=== PATIENT | male | born 1950 | race Caucasian/White ===

== ENCOUNTER 2016-11-11 07:31 | Inpatient (IN) | payer BC ==
[~2016-11-11] VITALS: Ht 185.4 cm; Wt 95.3 kg
[~2016-11-11 07:31] MED LIST: ASPI81TA28 PO; ATOR10TA82 PO; B-COCAP2 PO; CHOLTAB3 PO; FLUT0.15 NAE; HYDR25TA5 PO; MULT-506 PO; OMEG10007 PO
[2016-11-11] MEDS ORDERED: SODIUM CHLORIDE 0.9% 1000ML 1,000 ML IV STA (07:46)
[2016-11-11] MEDS ORDERED: ALBUTEROL 0.5% NEB SOLN 2.5 MG/0.5 ML VIAL INH STA ×2 (07:46→08:31)
[2016-11-11] MEDS ORDERED: ONDANSETRON INJ 2 MG/ML 2 ML VIAL IV STA (07:46)
--- NOTE | 2016-11-11 07:49 | EMERGENCY ROOM VISIT NOTE ---
History Report prepared by Itz: Gisselle Posadas Under the Supervision of: Dr. Valeriy Herrera M.D. First contact with patient: 07:37 Chief Complaint: VOMITING Stated Complaint: LIGHTHEADED, FLU LIKE SX History of Present Illness The patient is a 66 year old male who presents to the Emergency Room with complaints of a persistent illness that began five days ago. He currently rates his discomfort as a 5/10 in severity. The patient states that he felt that he was developing a cold. He states that his illness continued to worsen over the weekend and into Thursday. The patient states that he consulted his PCP and was instructed to take Mucinex and a cough suppressant. He associates a productive cough with his symptoms today. The patient denies any shortness of breath, chest pain, and abdominal pain. He associates a decrease in appetite over the last several days. The patient states that he began vomiting last evening and has been feeling dizzy. The patient's notes that the patient has been increasingly forgetful and confused. He notes a history of hypertension. The patient denies any smoking. Source of History: patient, spouse/significant other () Onset: five days ago Position: other (global) Symptom Intensity: 5/10 Timing: other (persistent) Associated Symptoms: + cough, + vomiting, No SOB, No abdominal pain, No chest pain Note: Associated Symptoms: dizzy, decrease in appetite Review of Systems See HPI for pertinent positives & negatives. A total of 10 systems reviewed and were otherwise negative. Past Medical & Surgical Medical Problems: (1) Basal cell carcinoma (2) Dyslipidemia (3) Hypertension (4) Hyponatremia Surgical Problems: (1) H/O arthroscopic knee surgery (2) H/O hernia repair (3) S/P hernia repair Family History Cancer Gallbladder disease Hypertension Social History Smoking Status: Never Smoker Smokeless Tobacco Use: No Alcohol Use: occasionally Marital Status: Housing Status: lives with significant other Occupation Status: retired Current/Historical Medications Scheduled Aspirin (Aspirin Ec), 81 MG PO DAILY Atorvastatin (Lipitor), 20 MG PO DAILY Benzonatate (Tessalon Perles), 100 MG PO TID Cholecalciferol (Vitamin D), PO DAILY Fish Oil ([place]-3), 2 CAP PO DAILY Guaifenesin (Mucinex Maximum Strength), 1 TAB PO BID Hydrochlorothiazide (Hctz), 12.5 MG PO DAILY Vitamin B Cmplx/Vitc/Folic Ac (Nephrocaps), 1 CAP PO DAILY Scheduled PRN Budesonide (Nasal) (Rhinocort Allergy), 2 PUFFS SHEA BID PRN for ALLERGIES Loratadine (Claritin), 10 MG PO DAILY PRN for ALLERGIC REACTION Allergies Coded Allergies: Ibuprofen (Unverified Adverse Reaction, Severe, BLEEDING, 11/11/16) Physical Exam Vital Signs Date Time Temp Pulse Resp B/P Pulse Ox O2 Delivery O2 Flow Rate FiO2 11/11/16 09:28 73 127/73 94 Room Air 11/11/16 09:01 88 153/92 11/11/16 07:38 36.8 94 20 211/111 94 Room Air Physical Exam GENERAL: Patient appears mildly confused, pale in appearance. HEAD: Normocephalic atraumatic EYES: Ocular movements intact pupils equal and react to light OROPHARYNX mucous membranes are moist no exudates present no erythema or edema present NECK: Supple no nuchal rigidity CHEST: Good equal expansion LUNGS: Clear and equal to auscultation CARDIAC: Normal S1 and S2 ABDOMEN: Soft nontender no guarding BACK: No CVA tenderness EXTREMITIES: No pain upon palpation normal muscle strength in all groups no clubbing cyanosis or edema NEURO: Patient is following commands is answering questions appropriately. Alert and oriented x3 Cranial Nerves 2-12 grossly intact Medical Decision & Procedures ER Provider Diagnostic Interpretation: Radiology results as stated below per my review and radiologist interpretation: HEAD CT NONCONTRAST CT DOSE: 614.27 mGy.cm HISTORY: Altered mental status. TECHNIQUE: Multiaxial CT images of the head were performed without the use of intravenous contrast. Automated exposure control was utilized for this study. Comparison: None. Findings: There is a 1.4 cm retention cyst within the right maxillary sinus. Partial opacification of the ethmoid air cells. The mastoid air cells are clear. The calvarium and skull base are intact. There is no mass, hematoma, midline shift, acute infarct. White matter hypodensity is nonspecific but suggestive of microvascular ischemic change. The ventricles and sulci demonstrate mild age-related involutional changes. Basal ganglia and cerebellar calcifications. Impression: No acute intracranial abnormality. Electronically signed by: Carlitos Landers M.D. 11/11/2016 8:27 AM Dictated Date/Time: 11/11/2016 8:24 AM CHEST ONE VIEW PORTABLE CLINICAL HISTORY: Wheezing. Flulike symptoms. COMPARISON STUDY: 11/05/2007 FINDINGS: The heart is the upper limits of normal in size. There is no failure. There is no focal pulmonary consolidation. There are no pleural effusions. There is minor left basilar atelectasis.[ IMPRESSION: No active disease in the chest. Electronically signed by: Dashawn Veloz M.D. 11/11/2016 8:14 AM Dictated Date/Time: 11/11/2016 8:13 AM Laboratory Results Test 11/11/16 07:50 11/11/16 08:30 Immature Granulocyte % (Auto) 0.3 % White Blood Count 10.49 K/uL (4.8-10.8) Red Blood Count 4.72 M/uL (4.7-6.1) Hemoglobin 15.8 g/dL (14.0-18.0) Hematocrit 41.8 % (42-52) Mean Corpuscular Volume 88.6 fL (80-100) Mean Corpuscular Hemoglobin 33.5 pg (25-34) Mean Corpuscular Hemoglobin Concent 37.8 g/dl (32-36) Platelet Count 196 K/uL (130-400) Mean Platelet Volume 11.2 fL (7.4-10.4) Neutrophils (%) (Auto) 74.8 % Lymphocytes (%) (Auto) 16.6 % Monocytes (%) (Auto) 8.1 % Eosinophils (%) (Auto) 0.1 % Basophils (%) (Auto) 0.1 % Neutrophils # (Auto) 7.85 K/uL (1.4-6.5) Lymphocytes # (Auto) 1.74 K/uL (1.2-3.4) Monocytes # (Auto) 0.85 K/uL (0.11-0.59) Eosinophils # (Auto) 0.01 K/uL (0-0.5) Basophils # (Auto) 0.01 K/uL (0-0.2) Immature Granulocyte # (Auto) 0.03 K/uL (0.00-0.02) Prothrombin Time 10.8 SECONDS (9.0-12.0) Prothromb Time International Ratio 1.0 (0.9-1.1) Activated Partial Thromboplast Time 27.8 SECONDS (21.0-31.0) Partial Thromboplastin Ratio 1.1 Magnesium Level 1.9 mg/dl (1.8-2.4) Total Bilirubin 1.0 mg/dl (0.2-1) Direct Bilirubin 0.3 mg/dl (0-0.2) Aspartate Amino Transf (AST/SGOT) 34 U/L (15-37) Alanine Aminotransferase (ALT/SGPT) 46 U/L (12-78) Alkaline Phosphatase 76 U/L (45-117) Creatine Kinase MB 5.6 ng/ml (0.5-3.6) Creatine Kinase MB Ratio 0.7 (0-3.0) Troponin I < 0.015 ng/ml (0-0.045) Total Protein 8.0 gm/dl (6.4-8.2) Albumin 4.2 gm/dl (3.4-5.0) Lipase 191 U/L (73-393) Lyme Disease IgG Antibody NEG (NEG) Lyme Disease IgM Antibody NEG (NEG) Hepatitis C Antibody Screen NEG (NEG) Monoscreen NEG (NEG) Urine Color YELLOW Urine Appearance CLEAR (CLEAR) Urine pH 6.0 (4.5-7.5) Urine Specific [place] 1.018 (1.000-1.030) Urine Protein NEG (NEG) Urine Glucose (UA) NEG (NEG) Urine Ketones 3+ (NEG) Urine Occult Blood NEG (NEG) Urine Nitrite NEG (NEG) Urine Bilirubin NEG (NEG) Urine Urobilinogen NEG (NEG) Urine Leukocyte Esterase NEG (NEG) Urine Osmolality 527 mOms/kg (500-800) Urine Random Sodium 76 mEq/L Influenza Type A (RT-PCR) Neg for Influ A (NEG) Influenza Type A Antigen Neg for Influ A (NEG) Influenza Type B Antigen Neg for Influ B (NEG) Influenza Type B (RT-PCR) Neg for Influ B (NEG) Labs reviewed by ED physician. Medications Administered Medications (Trade) Dose Ordered Sig/Pawel Route Start Time Stop Time Status Last Admin Dose Admin Albuterol Sulfate 2.5 mg 2.5 mg NOW STAT INH 11/11/16 07:46 11/11/16 07:49 DC 11/11/16 08:28 2.5 MG Sodium Chloride (Nss 1000ml) 1,000 ml @ 999 mls/hr Q1H1M STAT IV 11/11/16 07:46 11/11/16 08:46 DC 11/11/16 08:04 999 MLS/HR Ondansetron HCl (Zofran Inj) 4 mg NOW STAT IV 11/11/16 07:46 11/11/16 07:49 DC 11/11/16 08:03 4 MG Albuterol Sulfate (Ventolin 0.5% 2.5MG/0.5ML Neb) 2.5 mg NOW STAT INH 11/11/16 08:31 11/11/16 08:34 DC 11/11/16 09:32 2.5 MG Metoprolol Tartrate (Lopressor Iv) 5 mg NOW STAT IV 11/11/16 08:31 11/11/16 08:34 DC 11/11/16 09:01 5 MG Metoclopramide HCl 10 mg 10 mg NOW STAT IV 11/11/16 08:31 11/11/16 08:34 DC 11/11/16 08:59 10 MG Sodium Chloride (Nss 1000ml) 1,000 ml @ 100 mls/hr Q10H IV 11/11/16 09:57 11/12/16 07:32 DC 11/12/16 06:05 100 MLS/HR ED Course 0739: Past medical records reviewed. The patient was evaluated in room A2. A complete history and physical examination was performed. 0746: Ordered Zofran Inj 4 mg IV, Sodium Chloride 1000 ml @ 999 mls/hr IV, Albuterol Sulfate 2.5 mg INH. 0806: I reevaluated the patient and he is resting. 0831: Ordered Reglan Inj 10 mg IV, Lopressor IV 5 mg IV, Albuterol Sulfate 2.5 mg INH. 0910: I reevaluated the patient and he is resting comfortably. I discussed the exam findings with him and I discussed the treatment plan. He verbalized complete understanding and agreement. He is going to be evaluated for further treatment. 0915: I discussed the patients case with Patrice Welsh PA-C. She is going to evaluate the patient for further treatment. Medical Decision Differential diagnosis: Etiologies such as infections, reactive airway disease, pneumonia, pneumothorax , COPD, CHF, cardiac ischemia, pulmonary embolism, musculoskeletal, gastrointestinal, as well as others were entertained. This is a 66-year-old male who presents emergency department confused. The patient has been complaining of upper respiratory symptoms for the past several days. Upon arrival to emergency department he is hypertensive. He was given breathing treatments in the emergency department and sent for CAT scan of his head which did not show any acute process. Based on the patient's confusion as well as his hypertension he was given metoprolol. Repeat examination revealed much improvement the patient's symptoms. I did discuss the case with the hospitalist service who agreed to admit the patient. Patient family were in agreement with the treatment plan. Consults Time Called: 911 Consulting Physician: Patrice Welsh PA-C Returned Call: [phone] I discussed the patients case with Patrice Welsh PA-C. She is going to evaluate the patient for further treatment. Impression Primary Impression: Hypertensive urgency Scribe Attestation The scribe's documentation has been prepared under my direction and personally reviewed by me in its entirety. I confirm that the note above accurately reflects all work, treatment, procedures, and medical decision making performed by me. Departure Information Dispostion Being Evaluated By Hospitalist Referrals Rodríguez Pfeiffer MD (PCP)
[2016-11-11] MEDS ORDERED: CHOL400T PO (08:10)
[2016-11-11] MEDS ORDERED: BUDE1SUS8 NAE (08:12)
[2016-11-11 08:14] LABS: HEMATOCRIT 41.8 % (42-52); MEAN CELL VOLUME 88.6 fL (80-100); MEAN CORPUSCULAR HEMOGLOBIN 33.5 pg (25-34); MEAN CORPUSCULAR HGB CONC 37.8 g/dl (32-36); MEAN PLATELET VOLUME 11.2 fL (7.4-10.4); PLATELET COUNT 196 K/uL (130-400); RED BLOOD COUNT 4.72 M/uL (4.7-6.1); WHITE BLOOD COUNT 10.49 K/uL (4.8-10.8)
--- NOTE | 2016-11-11 08:16 | DIAGNOSTIC IMAGING REPORT ---
CHEST ONE VIEW PORTABLE CLINICAL HISTORY: Wheezing. Flulike symptoms. COMPARISON STUDY: 11/05/2007 FINDINGS: The heart is the upper limits of normal in size. There is no failure. There is no focal pulmonary consolidation. There are no pleural effusions. There is minor left basilar atelectasis.[ IMPRESSION: No active disease in the chest. Electronically signed by: Dashawn Veloz M.D. 11/11/2016 8:14 AM Dictated Date/Time: 11/11/2016 8:13 AM
[2016-11-11] MEDS ORDERED: DEXT30TA7 PO (08:18)
[2016-11-11] MEDS ORDERED: BENZ100C18 PO (08:18)
[2016-11-11] MEDS ORDERED: GUAI1TAB69 PO (08:22)
[2016-11-11] MEDS ORDERED: B-CO1CAP17 PO (08:24)
--- NOTE | 2016-11-11 08:30 | DIAGNOSTIC IMAGING REPORT ---
HEAD CT NONCONTRAST CT DOSE: 614.27 mGy.cm HISTORY: Altered mental status. TECHNIQUE: Multiaxial CT images of the head were performed without the use of intravenous contrast. Automated exposure control was utilized for this study. Comparison: None. Findings: There is a 1.4 cm retention cyst within the right maxillary sinus. Partial opacification of the ethmoid air cells. The mastoid air cells are clear. The calvarium and skull base are intact. There is no mass, hematoma, midline shift, acute infarct. White matter hypodensity is nonspecific but suggestive of microvascular ischemic change. The ventricles and sulci demonstrate mild age-related involutional changes. Basal ganglia and cerebellar calcifications. Impression: No acute intracranial abnormality. Electronically signed by: Carlitos Landers M.D. 11/11/2016 8:27 AM Dictated Date/Time: 11/11/2016 8:24 AM
[2016-11-11] MEDS ORDERED: METOPROLOL TARTRATE 1 MG/ML VIAL IV STA (08:31)
[2016-11-11] MEDS ORDERED: METOCLOPRAMIDE HCL INJ 5 MG/ML 2 ML VIAL IV STA (08:31)
[2016-11-11 08:34] LABS: ALT/SGPT 46 U/L (12-78); AST/SGOT 34 U/L (15-37); BLOOD UREA NITROGEN 8 mg/dl (7-18); BUN/CREATININE RATIO 11.1 (10-20); CALCIUM 8.4 mg/dl (8.5-10.1); CARBON DIOXIDE 21 mmol/L (21-32); CHLORIDE 88 mmol/L (98-107); CREATININE 0.75 mg/dl (0.60-1.40); GLUCOSE 139 mg/dl (70-99); POTASSIUM 3.4 mmol/L (3.5-5.1); SODIUM 121 mmol/L (136-145)
[2016-11-11 08:40] LABS: ALKALINE PHOSPHATASE 76 U/L (45-117); CKMB/CK RATIO 0.7 (0-3.0)
[2016-11-11 08:49] LABS: BASO % 0.1 %; BASO ABS # 0.01 K/uL (0-0.2); COMPLETE YES; EOS % 0.1 %; IG% 0.3 %; LYMPH % 16.6 %; LYMPH ABS # 1.74 K/uL (1.2-3.4); MONO % 8.1 %; NEUT % 74.8 %
[2016-11-11 08:52] LABS: URINE APPEARANCE CLEAR (CLEAR); URINE BILIRUBIN NEG (NEG); URINE COLOR YELLOW; URINE NITRITE NEG (NEG); URINE SPECIFIC GRAVITY 1.018 (1.000-1.030); UROBILINOGEN NEG (NEG)
[2016-11-11 08:58] LABS: MANUAL MICROSCOPIC REQUIRED? NO; REVIEW REQ? NO
[2016-11-11 09:40] LABS: LYME DISEASE AB IGG NEG (NEG); LYME DISEASE AB IGM NEG (NEG)
[2016-11-11] MEDS ORDERED: NITROGLYCERIN 0.4 MG SL PER TAB CHARGE SL PRN (10:00)
[2016-11-11] MEDS ORDERED: ACETAMINOPHEN 325 MG TAB PO PRN (10:00)
[2016-11-11] MEDS ORDERED: ONDANSETRON INJ 2 MG/ML 2 ML VIAL IV PRN (10:00)
[2016-11-11] MEDS ORDERED: CLR10 PO (10:05)
[2016-11-11] MEDS ORDERED: HYDR25TA4 PO (10:05)
[2016-11-11] MEDS ORDERED: ATOR-22 PO (10:05)
[2016-11-11] MEDS ORDERED: BUDESONIDE AQ (RHINOCORT AQ) NASAL SPRAY 32 MCG NAE PRN (10:15)
[2016-11-11 10:45] VITALS: O2SAT 94; BMI 27.6
[2016-11-11 10:49] VITALS: Ht 185.4 cm; Wt 95.3 kg
[2016-11-11] MEDS ORDERED: POTASSIUM CHLORIDE 10 MEQ TABCR ONE (11:05)
[2016-11-11 11:21] LABS: INFLUENZA A PCR Neg for Influ A (NEG); INFLUENZA B PCR Neg for Influ B (NEG)
--- NOTE | 2016-11-11 11:29 | History and Physical ---
History & Physical Date & Time of Service: Nov 11, 2016 at 10:06 Chief Complaint: Lightheaded, Flu Like Sx Primary Care Physician: Rodríguez Pfeiffer MD History of Present Illness Source: patient, spouse This is a 66 y/o male with PMHx of HTN, Dyslipidemia and other problems as outlined below who presents to the ED c/o flu-like sxs for 5 days/ Pt reports that 5 days ago he developed a productive cough that is assoc with weakness/ fatigue, chills, mild wheezing, loss of appetite and 2-3 episodes of diarrhea daily. He has been taking Mucinex, Tessalon Perles and NyQuil PRN with only minimal temporary relief. He also mentions that he has been drinking 1 gallon of water daily. Last night, patient was up all night coughing and vomited 3 times. When he got out of bed this morning he felt extremely lightheaded and noticed he was "out of it". Pt has a history of HTN. He did not take his HCTZ yesterday or this morning due to acute illness. Pt denies fever, diaphoresis, myalgias/arthralgias, SAMS, visual changes, chest pain, palpitations , SOB, abd pain, bladder issues, LE edema or calf pain. In the ED, BP is 210/ 110. Pt is afebrile with no leukocytosis. NA+ 121. K+ 3.4. CT head and CXR are both negative for acute process. Pt is stable and will be admitted for further evaluation and treatment. Past Medical/Surgical History Medical Problems: (1) Basal cell carcinoma Status: Resolved (2) Dyslipidemia Status: Chronic (3) Hypertension Status: Chronic Surgical Problems: (1) H/O arthroscopic knee surgery Status: Resolved (2) H/O hernia repair Status: Resolved (3) S/P hernia repair Status: Resolved Family History Cancer Gallbladder disease Hypertension Social History Smoking Status: Never Smoker Smokeless Tobacco Use: No Alcohol Use: 2 drinks daily Drug Use: none Marital Status: Housing status: lives with significant other Occupational Status: retired Multi-Drug Resistant Organisms History of MDRO: No Allergies Coded Allergies: Ibuprofen (Unverified Adverse Reaction, Severe, BLEEDING, 11/11/16) Home Medications Scheduled Aspirin (Aspirin Ec), 81 MG PO DAILY Atorvastatin (Lipitor), 20 MG PO DAILY Benzonatate (Tessalon Perles), 100 MG PO TID Cholecalciferol (Vitamin D), PO DAILY Fish Oil ([place]-3), 2 CAP PO DAILY Guaifenesin (Mucinex Maximum Strength), 1 TAB PO BID Hydrochlorothiazide (Hctz), 12.5 MG PO DAILY Vitamin B Cmplx/Vitc/Folic Ac (Nephrocaps), 1 CAP PO DAILY Scheduled PRN Budesonide (Nasal) (Rhinocort Allergy), 2 PUFFS SHEA BID PRN for ALLERGIES Loratadine (Claritin), 10 MG PO DAILY PRN for ALLERGIC REACTION Review of Systems Constitutional: + chills, + fatigue, + weakness, No fever, No sweats Eyes: No diplopia, No worsening of vision ENT: No hearing loss, No sore throat, No trouble swallowing Respiratory: + cough, + sputum, + wheezing, No shortness of breath Cardiovascular: No chest pain, No claudication, No edema Abdomen: + diarrhea, + vomiting, No GI bleeding, No constipation, No nausea, No pain Musculoskeletal: No calf pain, No swelling Genitourinary - Male: No dysuria Neurologic: + weakness Psychiatric: No depression symptoms Endocrine: + fatigue Hematologic / Lymphatic: No abnormal bleeding/bruising Integumentary: No new/changing skin lesions Physical Exam Vital Signs Date Time Temp Pulse Resp B/P Pulse Ox O2 Delivery O2 Flow Rate FiO2 11/11/16 09:28 73 127/73 94 Room Air 11/11/16 09:01 88 153/92 11/11/16 07:38 36.8 94 20 211/111 94 Room Air General Appearance: WD/WN, no apparent distress, + pertinent finding (Pt is sitting up in bed with at bedside ) Head: normocephalic, atraumatic Eyes: normal inspection, PERRL, EOMI ENT: hearing grossly normal Neck: supple Respiratory/Chest: chest non-tender, lungs clear, normal breath sounds, no respiratory distress, + pertinent finding (no wheezing or crackles noted ) Cardiovascular: regular rate, rhythm, no edema, no murmur Abdomen/GI: normal bowel sounds, non tender, soft Back: normal inspection Extremities/Musculoskelatal: normal inspection, no calf tenderness, no pedal edema Neurologic/Psych: alert, normal mood/affect, oriented x 3 Skin: normal color, warm/dry Diagnostics Laboratory Results Results Past 24 Hours Test 11/11/16 07:50 11/11/16 08:30 Range/Units White Blood Count 10.49 4.8-10.8 K/uL Red Blood Count 4.72 4.7-6.1 M/uL Hemoglobin 15.8 14.0-18.0 g/dL Hematocrit 41.8 42-52 % Mean Corpuscular Volume 88.6 80-100 fL Mean Corpuscular Hemoglobin 33.5 25-34 pg Mean Corpuscular Hemoglobin Concent 37.8 32-36 g/dl Platelet Count 196 130-400 K/uL Mean Platelet Volume 11.2 7.4-10.4 fL Neutrophils (%) (Auto) 74.8 % Lymphocytes (%) (Auto) 16.6 % Monocytes (%) (Auto) 8.1 % Eosinophils (%) (Auto) 0.1 % Basophils (%) (Auto) 0.1 % Neutrophils # (Auto) 7.85 1.4-6.5 K/uL Lymphocytes # (Auto) 1.74 1.2-3.4 K/uL Monocytes # (Auto) 0.85 0.11-0.59 K/uL Eosinophils # (Auto) 0.01 0-0.5 K/uL Basophils # (Auto) 0.01 0-0.2 K/uL RDW Standard Deviation 36.7 36.4-46.3 fL RDW Coefficient of Variation 11.3 11.5-14.5 % Immature Granulocyte % (Auto) 0.3 % Immature Granulocyte # (Auto) 0.03 0.00-0.02 K/uL Sodium Level 121 136-145 mmol/L Potassium Level 3.4 3.5-5.1 mmol/L Chloride Level 88 98-107 mmol/L Carbon Dioxide Level 21 21-32 mmol/L Anion Gap 12.0 3-11 mmol/L Blood Urea Nitrogen 8 7-18 mg/dl Creatinine 0.75 0.60-1.40 mg/dl Estimated GFR () 110.0 Estimated GFR (Non- 94.9 BUN/Creatinine Ratio 11.1 10-20 Random Glucose 139 70-99 mg/dl Calcium Level 8.4 8.5-10.1 mg/dl Total Bilirubin 1.0 0.2-1 mg/dl Direct Bilirubin 0.3 0-0.2 mg/dl Aspartate Amino Transf (AST/SGOT) 34 15-37 U/L Alanine Aminotransferase (ALT/SGPT) 46 12-78 U/L Alkaline Phosphatase 76 45-117 U/L Total Creatine Kinase 796 39-308 U/L Creatine Kinase MB 5.6 0.5-3.6 ng/ml Creatine Kinase MB Ratio 0.7 0-3.0 Troponin I < 0.015 0-0.045 ng/ml Total Protein 8.0 6.4-8.2 gm/dl Albumin 4.2 3.4-5.0 gm/dl Lipase 191 73-393 U/L Lyme Disease IgG Antibody NEG NEG Lyme Disease IgM Antibody NEG NEG Monoscreen NEG NEG Urine Color YELLOW Urine Appearance CLEAR CLEAR Urine pH 6.0 4.5-7.5 Urine Specific [place] 1.018 1.000-1.030 Urine Protein NEG NEG Urine Glucose (UA) NEG NEG Urine Ketones 3+ NEG Urine Occult Blood NEG NEG Urine Nitrite NEG NEG Urine Bilirubin NEG NEG Urine Urobilinogen NEG NEG Urine Leukocyte Esterase NEG NEG Influenza Type A Antigen Neg for Influ A NEG Influenza Type B Antigen Neg for Influ B NEG Microbiology Results 11/11/16 Blood Culture, Received Pending 11/11/16 Blood Culture, Received Pending Diagnostic Radiology CXR IMPRESSION: No active disease in the chest. CT CHEST IMPRESSION: No acute intracranial abnormality. Impression Assessment and Plan VIRAL ILLNESS pt presented with prod cough, chills, loss of appetite with N/V/D for last 2 days -admit to telemetry -pt is afebrile with no leukocytosis; saturating well on room air -CXR no consolidation -flu PCR-pending -blood and stool cx-pending -cont Tessalon Perles and Mucinex -incentive spirometry -monitor HYPERTENSIVE URGENCY -BP 210/110; did not take BP meds last 2 days -improved with Lopressor given in ED -hold HCTZ due to hyponatremia -start Lisinopril 20mg daily -monitor HYPONATREMIA -Na+ 121; likely dehydrated (poor PO intake and GI losses) -check urine osmolality and urine sodium -hold HCTZ -start IVF -monitor with serial prp HYPOKALEMIA -K+ 3.4; check mag -monitor with daily prp ELEVATED CK -CK>700; recheck in AM -likely elevated due to viral illness -cont IVF -monitor DYSLIPIDEMIA -cont statin DVT PROPHYLAXIS -subq Lovenox CODE STATUS -FULL CODE status DISPO Pt seen in collaboration with Dr. Islas. Please see her addendum for further details. Thanks! ADDENDUM: Patient admitted for URTI symptoms followed by severe nausea, vomiting >> diarrhea x 6 days. GI symptoms started 2 days ago. Unable to take anything PO x 2 days. URTI symptoms are improving except for persistent cough with some congestion and mild sputum. N/V/D persists, no abdominal pain, fever, chills. Exam: Vitals- hemodynamically stable AAOX 3, clammy, but no apparent distress Neck- No LNS, JVD Lungs- Decreased BS b/l , Few scattered rhonchi Heart- S1, S2 normal Abd- Soft, non tender, non distended, BS present Ext- No edema Neuro- AAOX3, No focal deficits Labs: Na 121, CXR- reviewed, no acute abnormalities A/P: 1. Viral illness- Improving respiratory symptoms, but new N/V/D x 2 days -Supportive care -IV fluids. -Avoid excess cough meds- Had been taking Tessalon TID, Mucinex, Robitussin PRN- -> I think this is what contributed to high BP 2. Hyponatremia, likely hypovolemic secondary to N/V/D -Had been trying to keep himself hydrated, but with N/V/D severe, unable to take PO much, HCTZ (last dose 2 days ago though) -IV Fluids -Repeat BMP at 1:00 PM 3. Hypokalemia Secondary to N/V/D -Replace 4. Rhabdomyolysis secondary to viral illness -CPK 700s -IV fluids 5. HTN uncontrolled- stable now Likely sec to viral illness, not taking his PO HCTZ, Cough medications contributing (was taking 3 diff cough meds) DISPOSITION Monitor on telemetry for 24 hours due to severe hyponatremia Agree with A/P of LISBETH ISLAS MD 11/11/16 AT 11:25 AM VTE Prophylaxis VTE Risk Assessment Done? Y/N: Yes Risk Level: Low
[2016-11-11 11:57] VITALS: BP 159/89; PULSE 78; TEMP 36.5; O2SAT 96
[2016-11-11 12:22] LABS: PARTIAL THROMBOPLASTIN RATIO 1.1; PROTHROMBIN TIME (PATIENT) 10.8 SECONDS (9.0-12.0)
[2016-11-11] MEDS: SODIUM CHLORIDE 0.9% 1000ML 1,000 ML IV SCH ×2 (12:30→19:58)
[2016-11-11] MEDS ORDERED: POTASSIUM CHLORIDE 10 MEQ TABCR PO ONE (13:00)
[2016-11-11 13:44] LABS: BUN/CREATININE RATIO 10.2 (10-20); CALCIUM 7.7 mg/dl (8.5-10.1); CREATININE 0.77 mg/dl (0.60-1.40); POTASSIUM 3.5 mmol/L (3.5-5.1)
[2016-11-11] MEDS: BENZONATATE 100MG CAP PO SCH ×2 (14:20→21:12)
[2016-11-11 15:38] VITALS: BP 161/87; PULSE 80; TEMP 37.5; O2SAT 95
[2016-11-11 16:00] VITALS: O2SAT 95
[2016-11-11 19:30] LABS: BUN/CREATININE RATIO 10.2 (10-20); CALCIUM 8.6 mg/dl (8.5-10.1); CREATININE 0.99 mg/dl (0.60-1.40); POTASSIUM 3.8 mmol/L (3.5-5.1)
[2016-11-11 19:37] VITALS: BP 157/88; PULSE 86; TEMP 36.9; O2SAT 94
[2016-11-11 20:00] VITALS: O2SAT 95
[2016-11-11] MEDS: GUAIFENESIN 600 MG TABCR PO SCH (21:12)
[2016-11-11] MEDS: ENOXAPARIN 40 MG/0.4 ML SYR SC SCH (21:13)
[2016-11-12] VITALS (8 sets, daily range): BP systolic 120–158; BP diastolic 79–94; PULSE 75–97; TEMP 36.7–37.1; O2SAT 93–96
[2016-11-12] MEDS: GUAIFENESIN SUGAR FREE 100 MG/5 ML UDC PO PRN ×3 (02:14→20:57)
[2016-11-12] MEDS: SODIUM CHLORIDE 0.9% 1000ML 1,000 ML IV SCH (06:05)
[2016-11-12 07:45] LABS: HEMATOCRIT 42.6 % (42-52); MEAN CELL VOLUME 92.2 fL (80-100); MEAN CORPUSCULAR HEMOGLOBIN 33.3 pg (25-34); MEAN CORPUSCULAR HGB CONC 36.2 g/dl (32-36); MEAN PLATELET VOLUME 10.5 fL (7.4-10.4); PLATELET COUNT 172 K/uL (130-400); RED BLOOD COUNT 4.62 M/uL (4.7-6.1); WHITE BLOOD COUNT 6.98 K/uL (4.8-10.8)
[2016-11-12] MEDS: CHOLECALCIFEROL 400 INTER.UNIT TAB PO SCH (08:38)
[2016-11-12] MEDS: ASPIRIN 81 MG ECTAB PO SCH (08:38)
[2016-11-12] MEDS: NEPHROCAPS PO SCH (08:38)
[2016-11-12] MEDS: LISINOPRIL 20 MG TAB PO SCH (08:38)
[2016-11-12] MEDS: LORATADINE 10 MG TAB PO PRN ×2 (08:38→20:57)
[2016-11-12] MEDS: ATORVASTATIN 20 MG TAB PO SCH (08:39)
[2016-11-12] MEDS: OMEGA-3 (PURIFIED FISH OIL) 1 GM CAP PO SCH (08:39)
[2016-11-12] MEDS: GUAIFENESIN 600 MG TABCR PO SCH ×2 (08:40→20:57)
[2016-11-12] MEDS: BENZONATATE 100MG CAP PO SCH ×3 (08:41→20:56)
[2016-11-12 08:57] LABS: BUN/CREATININE RATIO 12.7 (10-20); CALCIUM 8.8 mg/dl (8.5-10.1); CREATININE 0.85 mg/dl (0.60-1.40); POTASSIUM 3.9 mmol/L (3.5-5.1)
[2016-11-12] MEDS ORDERED: DEXTROSE 5% 1000ML 1,000 ML IV SCH (12:45)
--- NOTE | 2016-11-12 17:28 | Progress Note ---
Subjective Date of Service: Nov 12, 2016. Subjective Pt evaluation today including: conversation w/ patient, physical exam, lab review, review of studies, conversation w/ business management consultant, review of inpatient medication list Saw/examined the patient in room 279 He's feeling well, ate breakfast and lunch with no nausea/vomiting, no diarrhea states his cough and upper respiratory symptoms are improving no chest pain/shortness of breath no neurological symptoms Problem List Medical Problems: (1) Hypertensive urgency Status: Acute Review of Systems Constitutional: + weakness, No chills, No fever ENT: + nasal symptoms Respiratory: + cough, + sputum, No shortness of breath Cardiac: No chest pain Abdomen: + nausea, + vomiting (improving), No GI bleeding, No constipation, No diarrhea, No pain Heme: No abnormal bleeding/bruising Medications Current Inpatient Medications Medications (Trade) Dose Ordered Sig/Pawel Route Start Time Stop Time Status Last Admin Dose Admin Enoxaparin Sodium (Lovenox Inj) 40 mg Q24H SC 11/11/16 21:00 12/11/16 20:59 11/11/16 21:13 40 MG Acetaminophen (Tylenol Tab) 650 mg Q4H PRN PO 11/11/16 10:00 12/11/16 09:59 Ondansetron HCl (Zofran Inj) 4 mg Q6H PRN IV 11/11/16 10:00 12/11/16 09:59 Nitroglycerin (Nitrostat Tab) 0.4 mg UD PRN SL 11/11/16 10:00 12/11/16 09:59 Lisinopril (Zestril Tab) 20 mg QAM PO 11/12/16 09:00 12/12/16 08:59 11/12/16 08:38 20 MG Aspirin (Ecotrin Tab) 81 mg DAILY PO 11/12/16 09:00 12/12/16 08:59 11/12/16 08:38 81 MG Atorvastatin Calcium (Lipitor Tab) 20 mg DAILY PO 11/12/16 09:00 12/12/16 08:59 11/12/16 08:39 20 MG Benzonatate (Tessalon Perles Cap) 100 mg TID PO 11/11/16 14:00 12/11/16 13:59 11/11/16 21:12 100 MG Budesonide (Rhinocort Aq Nasal [place]) 2 sprays BID PRN SHEA 11/11/16 10:15 12/11/16 10:14 Cholecalciferol (Vitamin D Tab) 400 inter.unit DAILY PO 11/12/16 09:00 12/12/16 08:59 11/12/16 08:38 400 INTER.UNIT Fish Oil ([place]-3 (Purified Fish Oil) Cap) 2 gm DAILY PO 11/12/16 09:00 12/12/16 08:59 11/12/16 08:39 2 GM Loratadine (Claritin Tab) 10 mg DAILY PRN PO 11/11/16 10:15 12/11/16 10:14 11/12/16 08:38 10 MG Vitamin B Complex/ Vit C/Folic Acid (Nephrocaps) 1 cap DAILY PO 11/12/16 09:00 12/12/16 08:59 11/12/16 08:38 1 CAP Guaifenesin (Mucinex Contr Rel Tab) 600 mg BID PO 11/11/16 21:00 12/11/16 20:59 11/12/16 08:40 600 MG Guaifenesin 100 mg 100 mg Q6H PRN PO 11/12/16 01:30 12/12/16 01:29 11/12/16 08:39 100 MG Dextrose (D5W 1000ml) 1,000 ml @ 200 mls/hr Q5H IV 11/12/16 12:45 11/12/16 17:44 11/12/16 14:17 200 MLS/HR Objective Vital Signs Date Time Temp Pulse Resp B/P Pulse Ox O2 Delivery O2 Flow Rate FiO2 11/12/16 15:29 37.0 85 18 139/80 95 Room Air 11/12/16 12:00 Room Air 11/12/16 11:37 36.7 75 20 158/94 95 Room Air 11/12/16 08:00 94 Room Air 11/12/16 07:14 37.1 89 20 156/88 94 Room Air 11/12/16 04:47 37.1 85 18 144/93 95 Room Air 11/12/16 04:00 Room Air 11/12/16 00:00 36.8 97 20 148/87 94 Room Air 11/12/16 00:00 Room Air 11/11/16 20:00 95 Room Air 11/11/16 19:37 36.9 86 18 157/88 94 Room Air Physical Exam General Appearance: no apparent distress Respiratory/Chest: lungs clear, normal breath sounds, no respiratory distress, no accessory muscle use Cardiovascular: regular rate, rhythm, no edema, no murmur Extremities: normal inspection, no pedal edema Neurologic/Psychiatric: prop setter II-XII nml as tested, no motor/sensory deficits, alert, normal mood/affect, oriented x 3 Skin: normal color Laboratory Results Last 24 Hours Test 11/11/16 19:00 11/12/16 07:36 Sodium Level 133 mmol/L 140 mmol/L Potassium Level 3.8 mmol/L 3.9 mmol/L Chloride Level 100 mmol/L 107 mmol/L Carbon Dioxide Level 27 mmol/L 25 mmol/L Anion Gap 6.0 mmol/L 8.0 mmol/L Blood Urea Nitrogen 10 mg/dl 11 mg/dl Creatinine 0.99 mg/dl 0.85 mg/dl Est Creatinine Clear Calc Drug Dose 81.8 ml/min 95.3 ml/min Estimated GFR () 91.0 104.5 Estimated GFR (Non- 78.5 90.2 BUN/Creatinine Ratio 10.2 12.7 Random Glucose 126 mg/dl 101 mg/dl Calcium Level 8.6 mg/dl 8.8 mg/dl White Blood Count 6.98 K/uL Red Blood Count 4.62 M/uL Hemoglobin 15.4 g/dL Hematocrit 42.6 % Mean Corpuscular Volume 92.2 fL Mean Corpuscular Hemoglobin 33.3 pg Mean Corpuscular Hemoglobin Concent 36.2 g/dl RDW Standard Deviation 41.0 fL RDW Coefficient of Variation 12.2 % Platelet Count 172 K/uL Mean Platelet Volume 10.5 fL Total Creatine Kinase 1926 U/L Assessment and Plan This is a 66 year old male with PMH of HTN, HLD presented with upper respiratory symptoms and found to have hyponatremia Viral Illness presented with cough, loss of appetite, weakness, nausea/vomiting flu negative, CXR with no acute findings no fevers, no leukocytosis supportive care doing much better since being admitted Hyponatremia Na of 121 on admission given IVFs, correction to 140 spoke with nephrology, recommendation to give D5W @ 200mL/hr x 5 hours and recheck BMP if Na ~ 135; can d/c home with close outpatient PCP f/u hold HCTZ until PCP f/u Hypertensive Urgency BP > 200/100 on admission HCTZ held Lisinopril started - will d/c with Lisinopril Hypokalemia - resolved Elevated CPK elevated CK ~ 1999 likely secondary to infection giving IVFs currently, recheck in AM HLD statin DVT ppx Lovenox FULL CODE
[2016-11-12 19:37] LABS: CALCIUM 8.8 mg/dl (8.5-10.1); CREATININE 1.1 mg/dl (0.60-1.40)
[2016-11-12] MEDS: ENOXAPARIN 40 MG/0.4 ML SYR SC SCH (20:57)
[2016-11-13] VITALS (7 sets, daily range): BP systolic 116–155; BP diastolic 82–90; PULSE 78–93; TEMP 36.6–37.1; O2SAT 96–98
[2016-11-13 06:23] LABS: HEMATOCRIT 42.4 % (42-52); MEAN CELL VOLUME 93.6 fL (80-100); MEAN CORPUSCULAR HEMOGLOBIN 33.8 pg (25-34); MEAN CORPUSCULAR HGB CONC 36.1 g/dl (32-36); MEAN PLATELET VOLUME 11.6 fL (7.4-10.4); PLATELET COUNT 173 K/uL (130-400); RED BLOOD COUNT 4.53 M/uL (4.7-6.1); WHITE BLOOD COUNT 7.57 K/uL (4.8-10.8)
[2016-11-13 06:25] LABS: BUN/CREATININE RATIO 13.8 (10-20); CALCIUM 8.8 mg/dl (8.5-10.1); CREATININE 0.92 mg/dl (0.60-1.40); MAGNESIUM 2.3 mg/dl (1.8-2.4); POTASSIUM 3.8 mmol/L (3.5-5.1)
[2016-11-13] MEDS: ALBUT/IPRATROP 3MG/0.5MG NEB 3 ML VIAL INH SCH ×2 (07:14→11:25)
--- NOTE | 2016-11-13 08:21 | DIAGNOSTIC IMAGING REPORT ---
SINGLE VIEW CHEST CLINICAL HISTORY: Wheezing. Dyspnea. FINDINGS: An AP, portable, upright chest radiograph is compared to study dated 11/11/2016. The examination is degraded by portable technique and patient rotation. The cardiomediastinal silhouette is unremarkable. There is mild atherosclerotic calcification of the thoracic aorta. Emphysematous changes suspected. Chronic interstitial thickening is again noted. There is mild bibasilar atelectasis. No airspace consolidation, large pleural effusion, or pneumothorax is seen. The bony thorax is grossly intact. Degenerative change is noted in the thoracic spine. IMPRESSION: Emphysematous change is suspected. There is no acute cardiopulmonary abnormality. Electronically signed by: Rudy Whitmore M.D. 11/13/2016 8:20 AM Dictated Date/Time: 11/13/2016 8:18 AM
[2016-11-13] MEDS: GUAIFENESIN 600 MG TABCR PO SCH (08:38)
[2016-11-13] MEDS: NEPHROCAPS PO SCH (08:38)
[2016-11-13] MEDS: LISINOPRIL 20 MG TAB PO SCH (08:38)
[2016-11-13] MEDS: ASPIRIN 81 MG ECTAB PO SCH (08:38)
[2016-11-13] MEDS: BENZONATATE 100MG CAP PO SCH ×2 (08:39→13:55)
[2016-11-13] MEDS: CHOLECALCIFEROL 400 INTER.UNIT TAB PO SCH (08:39)
[2016-11-13] MEDS: ATORVASTATIN 20 MG TAB PO SCH (08:39)
[2016-11-13] MEDS: OMEGA-3 (PURIFIED FISH OIL) 1 GM CAP PO SCH (08:40)
--- NOTE | 2016-11-13 12:26 | Progress Note ---
Subjective Date of Service: Nov 13, 2016. Subjective Pt evaluation today including: conversation w/ patient, physical exam, lab review, review of studies, review of inpatient medication list Saw/examined the patient in room 279 Doing well; breathing last night worsened, but then improved with breathing treatments CXR this morning showed no acute findings He is a ambulating well +productive cough is present Problem List Medical Problems: (1) Hypertensive urgency Status: Acute Review of Systems Constitutional: No chills, No fever, No weakness Respiratory: + cough, + shortness of breath, + sputum, No dyspnea at rest, No dyspnea on exertion, No hemoptysis, No wheezing Cardiac: No chest pain, No edema, No palpitations Abdomen: No diarrhea, No nausea, No pain, No vomiting Medications Current Inpatient Medications Medications (Trade) Dose Ordered Sig/Pawel Route Start Time Stop Time Status Last Admin Dose Admin Enoxaparin Sodium (Lovenox Inj) 40 mg Q24H SC 11/11/16 21:00 12/11/16 20:59 11/12/16 20:57 40 MG Acetaminophen (Tylenol Tab) 650 mg Q4H PRN PO 11/11/16 10:00 12/11/16 09:59 Ondansetron HCl (Zofran Inj) 4 mg Q6H PRN IV 11/11/16 10:00 12/11/16 09:59 Nitroglycerin (Nitrostat Tab) 0.4 mg UD PRN SL 11/11/16 10:00 12/11/16 09:59 Lisinopril (Zestril Tab) 20 mg QAM PO 11/12/16 09:00 12/12/16 08:59 11/13/16 08:38 20 MG Aspirin (Ecotrin Tab) 81 mg DAILY PO 11/12/16 09:00 12/12/16 08:59 11/13/16 08:38 81 MG Atorvastatin Calcium (Lipitor Tab) 20 mg DAILY PO 11/12/16 09:00 12/12/16 08:59 11/13/16 08:39 20 MG Benzonatate (Tessalon Perles Cap) 100 mg TID PO 11/11/16 14:00 12/11/16 13:59 11/13/16 08:39 100 MG Budesonide (Rhinocort Aq Nasal [place]) 2 sprays BID PRN SHEA 11/11/16 10:15 12/11/16 10:14 Cholecalciferol (Vitamin D Tab) 400 inter.unit DAILY PO 11/12/16 09:00 12/12/16 08:59 11/13/16 08:39 400 INTER.UNIT Fish Oil ([place]-3 (Purified Fish Oil) Cap) 2 gm DAILY PO 11/12/16 09:00 12/12/16 08:59 11/13/16 08:40 2 GM Loratadine (Claritin Tab) 10 mg DAILY PRN PO 11/11/16 10:15 12/11/16 10:14 11/12/16 20:57 10 MG Vitamin B Complex/ Vit C/Folic Acid (Nephrocaps) 1 cap DAILY PO 11/12/16 09:00 12/12/16 08:59 11/13/16 08:38 1 CAP Guaifenesin (Mucinex Contr Rel Tab) 600 mg BID PO 11/11/16 21:00 12/11/16 20:59 11/13/16 08:38 600 MG Guaifenesin (Robitussin Sugar Free Syrup) 100 mg Q6H PRN PO 11/12/16 01:30 12/12/16 01:29 11/12/16 20:57 100 MG Albuterol/ Ipratropium (Duoneb) 3 ml QIDR INH 11/13/16 08:00 12/13/16 07:59 11/13/16 07:14 3 ML Objective Vital Signs Date Time Temp Pulse Resp B/P Pulse Ox O2 Delivery O2 Flow Rate FiO2 11/13/16 11:29 36.6 90 22 155/90 96 Room Air 11/13/16 08:00 Room Air 11/13/16 07:16 37.1 78 18 116/82 96 Room Air 11/13/16 07:15 88 20 98 Room Air 11/13/16 04:30 36.8 86 16 145/88 97 Room Air 11/13/16 04:07 88 20 97 Room Air 11/13/16 04:00 Room Air 11/13/16 00:00 Room Air 11/12/16 23:55 36.8 82 16 152/81 96 Room Air 11/12/16 20:02 37.1 84 18 120/79 93 Room Air 11/12/16 20:00 Room Air 11/12/16 16:00 Room Air 11/12/16 15:29 37.0 85 18 139/80 95 Room Air Physical Exam General Appearance: no apparent distress ENT: + pertinent finding (hoarseness) Respiratory/Chest: chest non-tender, lungs clear, normal breath sounds, no respiratory distress, no accessory muscle use Cardiovascular: regular rate, rhythm, no edema, no murmur Neurologic/Psychiatric: no motor/sensory deficits, alert, normal mood/affect Laboratory Results Last 24 Hours Test 11/12/16 19:04 11/13/16 05:31 Sodium Level 139 mmol/L 140 mmol/L Potassium Level 4.0 mmol/L 3.8 mmol/L Chloride Level 105 mmol/L 107 mmol/L Carbon Dioxide Level 28 mmol/L 29 mmol/L Anion Gap 6.0 mmol/L 4.0 mmol/L Blood Urea Nitrogen 18 mg/dl 13 mg/dl Creatinine 1.10 mg/dl 0.92 mg/dl Est Creatinine Clear Calc Drug Dose 73.6 ml/min 88.0 ml/min Estimated GFR () 80.1 99.4 Estimated GFR (Non- 69.1 85.8 BUN/Creatinine Ratio 16.0 13.8 Random Glucose 102 mg/dl 100 mg/dl Calcium Level 8.8 mg/dl 8.8 mg/dl White Blood Count 7.57 K/uL Red Blood Count 4.53 M/uL Hemoglobin 15.3 g/dL Hematocrit 42.4 % Mean Corpuscular Volume 93.6 fL Mean Corpuscular Hemoglobin 33.8 pg Mean Corpuscular Hemoglobin Concent 36.1 g/dl RDW Standard Deviation 41.9 fL RDW Coefficient of Variation 12.3 % Platelet Count 173 K/uL Mean Platelet Volume 11.6 fL Magnesium Level 2.3 mg/dl Total Creatine Kinase 1620 U/L Assessment and Plan This is a 66 year old male with PMH of HTN, HLD presented with upper respiratory symptoms and found to have hyponatremia Viral Illness 11/13 patient is doing better nausea/vomiting/diarrhea improved flu negative, CXR no acute findings no leukocytosis will likely d/c home today with albuterol inhaler, antitussive medications PRN 11/12 presented with cough, loss of appetite, weakness, nausea/vomiting flu negative, CXR with no acute findings no fevers, no leukocytosis supportive care doing much better since being admitted Hyponatremia 11/13 given 1L of D5W Na still around 140 can likely d/c today - will hold HCTZ; outpatient BMP 11/12 Na of 121 on admission given IVFs, correction to 140 spoke with nephrology, recommendation to give D5W @ 200mL/hr x 5 hours and recheck BMP if Na ~ 135; can d/c home with close outpatient PCP f/u hold HCTZ until PCP f/u Hypertensive Urgency BP > 200/100 on admission HCTZ held Lisinopril started - will d/c with Lisinopril Hypokalemia - resolved Elevated CPK elevated CK ~ 1999 likely secondary to infection giving IVFs currently, recheck in AM HLD statin DVT ppx Lovenox FULL CODE
[2016-11-13] MEDS ORDERED: VNTHFA/IN INH (14:34)
[2016-11-13] MEDS ORDERED: LSN20 PO (14:34)
--- NOTE | 2016-11-13 14:47 | Discharge Instructions ---
Discharge Instructions Date of Service Nov 13, 2016. Admission Reason for Admission: Hyponatremia Discharge Discharge Diagnosis / Problem: Viral Upper Respiratory Tract Infection; Hyponatremia Discharge Goals Goal(s): Decrease discomfort, Improve function, Diagnostic testing, Therapeutic intervention Activity Recommendations Activity Limitations: resume your previous activity . Instructions / Follow-Up Instructions / Follow-Up Please follow-up with Dr. Pfeiffer on November 17 @ 10:45AM * You will be discharged with Lisinopril 20mg - you should stop taking hydrochlorothiazide * You will be discharged with an albuterol inhaler - only use if needed ( shortness of breath) * Your primary care physician should recheck blood work (sodium level) next week Current Hospital Diet Patient's current hospital diet: Regular Diet Discharge Diet Recommended Diet: Regular Diet Pending Studies Studies pending at discharge: no Medical Emergencies . Who to Call and When: Medical Emergencies: If at any time you feel your situation is an emergency, please call 911 immediately. . Non-Emergent Contact Non-Emergency issues call your: Primary Care Provider . . "Provider Documentation" section prepared by Lesvia Estrella. . VTE Core Measure Inpt VTE Proph given/why not?: Enoxaparin (Lovenox)SQ
--- NOTE | 2016-11-13 14:48 | Discharge Summary ---
Discharge Summary Date of Service Nov 13, 2016. Discharge Summary Admission Date: Nov 11, 2016 at 10:01 Discharge Date: Nov 13, 2016 Discharge Disposition: Home Principal Diagnosis: Upper Respiratory Tract Infection vs. Viral Bronchitis Hyponatremia Medication Reconciliation New Medications: Albuterol Hfa (Ventolin Hfa) 200 Puffs/67882 Mcg Aers 2-4 PUFFS INH Q6H, #1 INHALER Lisinopril (Lisinopril) 20 Mg Tab 20 MG PO QAM for 30 Days, #30 TAB Continued Medications: Aspirin (Aspirin Ec) 81 Mg Tab 81 MG PO DAILY Atorvastatin (Lipitor) 20 Mg Tab 20 MG PO DAILY, TAB Benzonatate (Tessalon Perles) 100 Mg Cap 100 MG PO TID, CAP Budesonide (Nasal) (Rhinocort Allergy) 32 Mcg/Act Jenna 2 PUFFS SHEA BID PRN for ALLERGIES Cholecalciferol (Vitamin D) 400 Unit Tab PO DAILY Fish Oil ([place]-3) 1 Ea Cap 2 CAP PO DAILY Guaifenesin (Mucinex Maximum Strength) 1,200 Mg Tab 1 TAB PO BID for 15 Days, #30 TAB Loratadine (Claritin) 10 Mg Tab 10 MG PO DAILY PRN for ALLERGIC REACTION, TAB Vitamin B Cmplx/Vitc/Folic Ac (Nephrocaps) Cap 1 CAP PO DAILY for 90 Days, #90 CAP 3 Refills Discontinued Medications: Hydrochlorothiazide (Hctz) 25 Mg Tab 12.5 MG PO DAILY, TAB Admission Information HPI (per Admitting provider): This is a 66 y/o male with PMHx of HTN, Dyslipidemia and other problems as outlined below who presents to the ED c/o flu-like sxs for 5 days/ Pt reports that 5 days ago he developed a productive cough that is assoc with weakness/ fatigue, chills, mild wheezing, loss of appetite and 2-3 episodes of diarrhea daily. He has been taking Mucinex, Tessalon Perles and NyQuil PRN with only minimal temporary relief. He also mentions that he has been drinking 1 gallon of water daily. Last night, patient was up all night coughing and vomited 3 times. When he got out of bed this morning he felt extremely lightheaded and noticed he was "out of it". Pt has a history of HTN. He did not take his HCTZ yesterday or this morning due to acute illness. Pt denies fever, diaphoresis, myalgias/arthralgias, SAMS, visual changes, chest pain, palpitations , SOB, abd pain, bladder issues, LE edema or calf pain. In the ED, BP is 210/ 110. Pt is afebrile with no leukocytosis. NA+ 121. K+ 3.4. CT head and CXR are both negative for acute process. Pt is stable and will be admitted for further evaluation and treatment. Physical Exam (per Admitting): General Appearance: WD/WN, no apparent distress, + pertinent finding (Pt is sitting up in bed with at bedside ) Head: normocephalic, atraumatic Eyes: normal inspection, PERRL, EOMI ENT: hearing grossly normal Neck: supple Respiratory/Chest: chest non-tender, lungs clear, normal breath sounds, no respiratory distress, + pertinent finding (no wheezing or crackles noted ) Cardiovascular: regular rate, rhythm, no edema, no murmur Abdomen/GI: normal bowel sounds, non tender, soft Back: normal inspection Extremities/Musculoskelatal: normal inspection, no calf tenderness, no pedal edema Neurologic/Psych: alert, normal mood/affect, oriented x 3 Skin: normal color, warm/dry Hospital Course This is a 66 year old male with PMH of HTN, HLD presented with upper respiratory symptoms and found to have hyponatremia Viral Illness 11/13 patient is doing better nausea/vomiting/diarrhea improved flu negative, CXR no acute findings no leukocytosis will likely d/c home today with albuterol inhaler, antitussive medications PRN 11/12 presented with cough, loss of appetite, weakness, nausea/vomiting flu negative, CXR with no acute findings no fevers, no leukocytosis supportive care doing much better since being admitted Hyponatremia 11/13 given 1L of D5W Na still around 140 can likely d/c today - will hold HCTZ; outpatient BMP 11/12 Na of 121 on admission given IVFs, correction to 140 spoke with nephrology, recommendation to give D5W @ 200mL/hr x 5 hours and recheck BMP if Na ~ 135; can d/c home with close outpatient PCP f/u hold HCTZ until PCP f/u Hypertensive Urgency BP > 200/100 on admission HCTZ held Lisinopril started - will d/c with Lisinopril Hypokalemia - resolved Elevated CPK elevated CK ~ 1999 likely secondary to infection giving IVFs currently, recheck in AM HLD statin DVT ppx Lovenox FULL CODE Total time spent on discharge = 40 minutes This includes examination of the patient, discharge planning, medication reconciliation, and communication with other providers. Discharge Instructions Please follow-up with Dr. Pfeiffer on November 17 @ 10:45AM * You will be discharged with Lisinopril 20mg - you should stop taking hydrochlorothiazide * You will be discharged with an albuterol inhaler - only use if needed ( shortness of breath) * Your primary care physician should recheck blood work (sodium level) next week
[2016-11-13 22:06] LABS: EBV EARLY ANTIGEN AB <0.91 INDEX; EPSTEIN BARR VIR CAPSID IGG 3.48 INDEX
[2017-05-20] MEDS ORDERED: HYDR-5688 PO (11:36)
[2017-05-20] MEDS ORDERED: CEPH500C2 PO (11:36)
== END 2016-11-13 15:30 | disposition home or self-care (01) | DRG 153 ==
LOC: ENRESERVDT → ENRESERVTM → C.EDB 07:33 → C.MED 10:01
PROVIDERS: ADMIT Internal Medicine; ATTEND Family Medicine
DX: J06.9 Acute upper respiratory infection, unspecified (principal); E87.1 Hypo-osmolality and hyponatremia; M62.82 Rhabdomyolysis; R63.0 Anorexia; J40 Bronchitis, not specified as acute or chronic; Z79.82 Long term (current) use of aspirin; E87.6 Hypokalemia; I10 Essential (primary) hypertension; E78.5 Hyperlipidemia, unspecified; Z82.49 Family history of ischemic heart disease and other diseases of the circulatory system